=== PATIENT | female | born 2005 | race Caucasian/White ===

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

== ENCOUNTER 2025-03-11 20:01 | Emergency (ER) | payer SELFPAY ==
[~2025-03-11] VITALS: Wt 54.4 kg
[~2025-03-11 20:01] MED LIST changes: +SILVADENE,SSD C50 GM T
[2025-03-11] MEDS ORDERED: predniSONE 20 MG TAB PO ONE (20:15)
[2025-03-11] MEDS ORDERED: PREDNISONE20 M1 PO (20:18)
== END 2025-03-11 20:32 | disposition home or self-care (01) ==
LOC: ED 20:01
DX: L23.7 Allergic contact dermatitis due to plants, except food (principal); Z88.8 Allergy status to other drugs, medicaments and biological substances